=== PATIENT | female | born 1990 | race Caucasian/White ===

== ENCOUNTER 2021-04-23 11:14 | Observation (INO) | payer OTHER, SELFPAY ==
[~2021-04-23] VITALS: Ht 172.7 cm; Wt 88.5 kg
[2021-04-23 11:42] VITALS: BP 101/62
[2021-04-23 12:06] LABS: APPEARANCE,URINE HAZY (CLEAR); BILIRUBIN,URINE NEGATIVE (NEGATIVE); BLOOD, URINE NEGATIVE (NEGATIVE); COLOR,URINE YELLOW (YELLOW); LEUKOCYTE ESTERASE ,URINE NEGATIVE (NEGATIVE); NITRITE, URINE NEGATIVE (NEGATIVE); UGLUCOSE TRACE (NEGATIVE)
[2021-04-23 12:07] LABS: BASOPHILS % (AUTO) 0.3 % (0.0-2.0); EOSINOPHILS # (AUTO) 0.1 K/uL (0-0.4); EOSINOPHILS % (AUTO) 0.6 % (0.0-4.0); HEMATOCRIT 34.4 % (36-48); HEMOGLOBIN 11.8 g/dL (12.0-16.0); LYMPHOCYTES # (AUTO) 2.3 K/uL (2.5-16.5); MEAN CORPUSCULAR HEMOGLOBIN 29 pg (27-31); MEAN CORPUSCULAR HGB CONC 34 g/dL (33-37); MEAN CORPUSCULAR VOLUME 85.5 fL (80-94); MONOCYTES # (AUTO) 0.8 K/uL (0.8-1.0); MONOCYTES % (AUTO) 7.1 % (1.7-9.3); NEUTROPHILS # (AUTO) 8.8 K/uL (1.8-7.7); PLATELET COUNT (AUTO) 226 K/uL (140-450); RED BLOOD CELL COUNT(AUTO) 4.03 MIL/uL (4.20-5.40); RED CELL DISTRIBUTION WIDTH 12.5 % (11.6-13.7)
[2021-04-23 12:43] LABS: ALBUMIN 2.7 g/dL (3.4-5.0); ANION GAP 12.5 (8-16); CARBON DIOXIDE 21.9 mmol/L (21-32); CREATININE 0.7 mg/dL (0.6-1.3); POTASSIUM 3.4 mmol/L (3.5-5.1); TOTAL BILIRUBIN 0.1 mg/dL (0.0-1.0)
== END 2021-04-23 13:20 | disposition home or self-care (01) ==
LOC: MLD 11:14
PROVIDERS: ADMIT Obstetrics & Gynecology; ATTEND Obstetrics & Gynecology
DX: O26.893 Other specified pregnancy related conditions, third trimester (principal); N89.8 Other specified noninflammatory disorders of vagina; O36.8330 Maternal care for abnormalities of the fetal heart rate or rhythm, third trimester, not applicable or unspecified; R00.0 Tachycardia, unspecified; Z3A.33 33 weeks gestation of pregnancy; Z20.822 Contact with and (suspected) exposure to COVID-19
CPT/HCPCS: 36415; 59025; 76819; 80053; 81003; 85025; 86886; 86900; 86901; 87426; G0378; Q0092

== ENCOUNTER 2021-05-24 12:15 | Inpatient (IN) | payer OTHER, SELFPAY ==
[~2021-05-24] VITALS: Ht 170.2 cm; Wt 93.9 kg
[2021-05-24] MEDS ORDERED: PRETAB PO (12:27)
[2021-05-24] MEDS ORDERED: METHYLERGONOVINE 0.2 MG/ML AMP IM PRN (12:30)
[2021-05-24] MEDS ORDERED: LACTATED RINGERS 500 ML IV SCH (12:30)
[2021-05-24] MEDS ORDERED: CARBOPROST 250 MCG/ML AMP IM PRN (12:30)
[2021-05-24] MEDS ORDERED: MORPHINE SULFATE 5 MG/ML VIAL IVP PRN (12:40)
[2021-05-24] MEDS: MORPHINE SULFATE 10 MG/ML VIAL IVP PRN ×2 (13:23→17:56)
[2021-05-24] MEDS: ONDANSETRON 4 MG/2 ML VIAL IVP PRN ×2 (13:24→17:55)
[2021-05-24 13:40] LABS: BILIRUBIN,URINE NEGATIVE (NEGATIVE); BLOOD, URINE 3+ (NEGATIVE); COLOR,URINE YELLOW (YELLOW); LEUKOCYTE ESTERASE ,URINE NEGATIVE (NEGATIVE); NITRITE, URINE NEGATIVE (NEGATIVE); UGLUCOSE NEGATIVE (NEGATIVE)
[2021-05-24 13:41] LABS: BASOPHILS % (AUTO) 0.2 % (0.0-2.0); EOSINOPHILS % (AUTO) 0.2 % (0.0-4.0); HEMATOCRIT 36.4 % (36-48); HEMOGLOBIN 12.3 g/dL (12.0-16.0); LYMPHOCYTES # (AUTO) 2.6 K/uL (2.5-16.5); LYMPHOCYTES % (AUTO) 19.3 % (20.5-51.1); MEAN CORPUSCULAR HEMOGLOBIN 29 pg (27-31); MEAN CORPUSCULAR HGB CONC 34 g/dL (33-37); MEAN CORPUSCULAR VOLUME 86.8 fL (80-94); MONOCYTES # (AUTO) 0.7 K/uL (0.8-1.0); MONOCYTES % (AUTO) 5.1 % (1.7-9.3); NEUTROPHILS % (AUTO) 75.2 % (42.2-75.2); PLATELET COUNT (AUTO) 187 K/uL (140-450); RED BLOOD CELL COUNT(AUTO) 4.19 MIL/uL (4.20-5.40); RED CELL DISTRIBUTION WIDTH 13.5 % (11.6-13.7); WHITE BLOOD COUNT (AUTO) 13.2 K/uL (4.8-10.8)
[2021-05-24 13:47] LABS: CALCIUM OXALATE CRYSTALS,UR 0-10 /HPF (None Seen); WBC,URINE 0-5 /HPF (0-5)
[2021-05-24 13:48] VITALS: BP 134/86
[2021-05-24 13:48] LABS: APPEARANCE,URINE HAZY (CLEAR)
[2021-05-24 13:53] LABS: ALBUMIN 2.5 g/dL (3.4-5.0); ANION GAP 15.7 (8-16); CARBON DIOXIDE 18.3 mmol/L (21-32); CREATININE 0.8 mg/dL (0.6-1.3); TOTAL BILIRUBIN 0.1 mg/dL (0.0-1.0)
[2021-05-24 20:03] LABS: URIC ACID 5.1 mg/dL (2.6-7.2)
[2021-05-24 20:10] LABS: URINE TOTAL PROTEIN 115.4 mg/dL (0-12)
[2021-05-24] MEDS: LACTATED RINGERS 1,000 ML IV SCH (21:27)
[2021-05-24] MEDS ORDERED: fentaNYL citrate 0.05 MG/ML VIAL ONE (21:45)
[2021-05-24] MEDS ORDERED: ROPIVACAINE 0.2%/NS PREMIX 200 ML EPI ONE (21:46)
--- NOTE | 2021-05-25 06:48 | NUR ---
PATIENT HAS BEEN SCREENED AND CATEGORIZED LOW NUTRITION RISK. PATIENT WILL BE SEEN WITHIN 7 DAYS OF ADMISSION. 05/31/21 RENNY MANNING MS, RDN
[2021-05-25] MEDS ORDERED: OXYTOCIN 20 UNITS/LR PREMIX 1,000 ML IV ONE ×2 (08:42→21:36)
[2021-05-25] MEDS: OXYTOCIN 20 UNITS in LACTATED RINGERS 1,000 ML IV SCH ×2 (09:30→11:57)
[2021-05-25] MEDS ORDERED: ROPIVACAINE 0.2%/NS PREMIX 200 ML EPI ONE (11:58)
[2021-05-25] MEDS: MORPHINE SULFATE 10 MG/ML VIAL IVP PRN ×2 (14:19→21:03)
[2021-05-25] MEDS: LACTATED RINGERS 1,000 ML IV SCH (14:46)
[2021-05-25] MEDS: ONDANSETRON 4 MG/2 ML VIAL IVP PRN (21:01)
[2021-05-25 21:03] VITALS: BP 138/97
[2021-05-25] MEDS ORDERED: MIDAZOLAM 2 MG/2 ML VIAL ONE (21:11)
[2021-05-25] MEDS ORDERED: MORPHINE PRES FREE 10 MG/10 ML AMP IV ONE (21:11)
[2021-05-25] MEDS ORDERED: ceFAZolin 1,000 MG VIAL ONE ×2 (21:16→21:17)
[2021-05-25] MEDS ORDERED: diphenhydrAMINE 50 MG/ML VIAL ONE (21:36)
--- NOTE | 2021-05-25 22:30 | NUR ---
ASSISTED IN WITH LABOR AND DELIVERY STAFF, BABY WAS DELIVERED AT 2230, SCORES OF 8/9, INFANT IN NO DISTRESS, WITH NURSERY STAFF PRESENT, ASSISTED WITH WARMING/ DRYING /STIMULATION.
[2021-05-25] MEDS ORDERED: MEPERIDINE 25 MG/ML SYR IVP PRN (22:40)
[2021-05-25] MEDS ORDERED: NALBUPHINE 10 MG/ML AMP IVP PRN (22:40)
[2021-05-25] MEDS ORDERED: diphenhydrAMINE 50 MG/ML VIAL IVP PRN ×2 (22:40)
[2021-05-25] MEDS ORDERED: HYDROmorphone 1 MG/ML AMP IVP PRN (22:40)
[2021-05-25] MEDS ORDERED: NALOXONE 0.4 MG/ML VIAL IVP PRN ×3 (22:40)
[2021-05-25] MEDS ORDERED: ONDANSETRON 4 MG/2 ML VIAL IVP PRN ×2 (22:40)
[2021-05-26] MEDS: KETOROLAC 30 MG/ML VIAL IM/IVP SCH ×3 (00:23→12:34)
[2021-05-26] MEDS ORDERED: oxyCODONE/APAP 5/325 MG 1 TAB TAB PO PRN (03:10)
[2021-05-26] MEDS ORDERED: MEASLES, MUMPS, AND RUBELLA 1 VIAL SQVAC ONE (03:10)
[2021-05-26] MEDS ORDERED: METHYLERGONOVINE 0.2 MG/ML AMP IM PRN (03:10)
[2021-05-26] MEDS: OXYTOCIN 20 UNITS in LACTATED RINGERS 1,000 ML IV SCH ×2 (05:44→14:45)
[2021-05-26] MEDS ORDERED: LORazepam 0.5 MG TAB PO PRN (11:25)
[2021-05-26] MEDS: DULoxetine 30 MG CAPDR PO SCH (21:02)
[2021-05-26] MEDS: IBUPROFEN 800 MG TAB PO PRN (21:08)
[2021-05-27] MEDS: HYDROcodone/APAP 5/325 MG 1 TAB TAB PO PRN ×2 (00:52→21:01)
[2021-05-27] MEDS ORDERED: FLU VACCINE QS2021-22 0.5 ML SYR IMVAC ONE ×2 (02:30→04:30)
[2021-05-27 08:19] LABS: BASOPHILS % (AUTO) 0.2 % (0.0-2.0); EOSINOPHILS # (AUTO) 0.3 K/uL (0-0.4); EOSINOPHILS % (AUTO) 1.7 % (0.0-4.0); HEMATOCRIT 27.4 % (36-48); HEMOGLOBIN 9.1 g/dL (12.0-16.0); LYMPHOCYTES # (AUTO) 1.9 K/uL (2.5-16.5); LYMPHOCYTES % (AUTO) 10.1 % (20.5-51.1); MEAN CORPUSCULAR HEMOGLOBIN 29 pg (27-31); MEAN CORPUSCULAR HGB CONC 33 g/dL (33-37); MEAN CORPUSCULAR VOLUME 87.4 fL (80-94); MONOCYTES # (AUTO) 1.2 K/uL (0.8-1.0); MONOCYTES % (AUTO) 6.7 % (1.7-9.3); NEUTROPHILS # (AUTO) 15.1 K/uL (1.8-7.7); NEUTROPHILS % (AUTO) 81.3 % (42.2-75.2); PLATELET COUNT (AUTO) 152 K/uL (140-450); RED BLOOD CELL COUNT(AUTO) 3.13 MIL/uL (4.20-5.40); RED CELL DISTRIBUTION WIDTH 13.3 % (11.6-13.7); WHITE BLOOD COUNT (AUTO) 18.6 K/uL (4.8-10.8)
[2021-05-27] MEDS: SIMETHICONE 80 MG TAB.CHEW PO PRN ×2 (09:02→18:34)
[2021-05-27] MEDS: bisacodyL 5 MG TABEC PO PRN (09:02)
[2021-05-27] MEDS: DULoxetine 30 MG CAPDR PO SCH ×2 (09:03→21:00)
[2021-05-27] MEDS: IBUPROFEN 800 MG TAB PO PRN (18:34)
[2021-05-27] MEDS ORDERED: CAMERA MC ONE (19:17)
[2021-05-28] MEDS: bisacodyL 5 MG TABEC PO PRN (03:44)
[2021-05-28] MEDS: HYDROcodone/APAP 5/325 MG 1 TAB TAB PO PRN ×2 (03:45→11:29)
[2021-05-28] MEDS: SIMETHICONE 80 MG TAB.CHEW PO PRN ×2 (03:46→11:29)
== END 2021-05-28 12:22 | disposition home or self-care (01) | DRG 540 ==
LOC: MLD 12:15 → MFCC 05-26
PROVIDERS: ADMIT Obstetrics & Gynecology; ATTEND Obstetrics & Gynecology
PROC: 10D00Z1 Extraction of Products of Conception, Low, Open Approach (ICD-10-PCS; principal; 2021-05-26)
DX: O62.2 Other uterine inertia (principal); R71.0 Precipitous drop in hematocrit; O62.0 Primary inadequate contractions; Z20.822 Contact with and (suspected) exposure to COVID-19; Z37.0 Single live birth; Z3A.38 38 weeks gestation of pregnancy
CPT/HCPCS: 36415; 51702; 80053; 81001; 82570; 84550; 85025; 85384; 85730; 86592; 86886; 86900; 86901; 87081; 87653-90; J0690; J1200; J1885; J2175; J2250; J2270; J2405; J2590; J2795; J3010; J7120